=== PATIENT | female | born 1990 | race Caucasian/White ===

== ENCOUNTER 2017-12-09 03:14 | Emergency (ER) | payer SELFPAY ==
--- NOTE | 2017-12-09 04:27 | ER Document Report ---
HPI - HPI Context: denies any long travel, recent surgery, hx of blood clots, chemo or long periods of immobilization. Patient does have a history of anxiety, does not take any medications for anxiety because she "does not like to take pharmaceuticals".. Patient states she was anxious when she came into the ER originally, but states her anxiety has decreased throughout the course of her stay in the emergency room Patient does have an IUD that she has had in place for the last 9 years. Denies any n/t in leg. no otc medications tried. denies any trauma to leg. Denies fevers, chills, chest pain,palpitations, shortness of breath, dyspnea, nausea, vomiting, diarrhea, abdominal pain, hematuria, blurred vision, double vision, loss of vision, speech changes, LH, dizziness, syncope, headaches, wheezing, ST, URI, neck pain, weakness, bowel or bladder dysfunction, saddle anesthesia, numbness or tingling in bilateral upper or lower extremities equally, muscle paralysis, weakness in bilateral upper or lower extremities equally or rash. Denies IV drug use. <CHUY HALL - Last Filed: 12/09/17 08:43> - HPI Patient complains to provider of: Right calf pain Pain Level: 2 Context: Patient is a 27-year-old female who comes emergency department for chief complaint of pain in her right leg and calf. She states that she has noticed pain intermittently since a plane ride last June, she states that over the past few days the pain has specifically got worse in her calf area. She denies other areas of pain, injury, or history of blood clot personally or in her family. She does smoke, she has Mirena IUD. - REPRODUCTIVE LMP: IUD Reproductive: DENIES: : <ALLYSON TERRY - Last Filed: 12/09/17 19:03> Past Medical History - General Information source: Patient - Social History Smoking Status: Current Every Day Smoker Frequency of alcohol use: None Drug Abuse: None Lives with: Alone Family History: Reviewed & Not Pertinent - Immunizations Immunizations up to date: Yes Hx Diphtheria, Pertussis, Tetanus Vaccination: Yes <ALLYSON TERRY - Last Filed: 12/09/17 19:03> Vertical Provider Document - MUSCULOSKELETAL/EXTREMETIES Notes: right calf tenderness and swelling with palpation. negative shana's sign. anterior and posterior drawer test negative.Dtr + 2 in BLE. Full motor and sensory function. no ecchymosis or abrasions noted. distal pulses + 2 bilaterally and equally. Bilateral lower extremity without deformity or asymmetry. No overlying erythema, warmth, discoloration. No lesions or break in the skin integrity. No evidence of compartment syndrome, lymphadenopathy, gangrene. No palpable cords or evidence <CHUY HALL - Last Filed: 12/09/17 08:43> - CONSTITUTIONAL General Appearance: WD/WN, No Apparent Distress, Obese - INFECTION CONTROL TRAVEL OUTSIDE OF THE [place] IN LAST 30 DAYS: No - HEENT HEENT: Atraumatic, Normal ENT Exam, Normocephalic - NECK Neck: Normal Inspection - RESPIRATORY Respiratory: Breath Sounds Normal, No Respiratory Distress. negative: Wheezing O2 Sat by Pulse Oximetry: 97 - CARDIOVASCULAR Cardiovascular: Regular Rate, Regular Rhythm. negative: Tachycardia - GI/ABDOMEN Gastrointestinal: Abdomen Soft, Abdomen Non-Tender - BACK Back: Normal Inspection - MUSCULOSKELETAL/EXTREMETIES Musculoskeletal/Extremeties: Tender - There is general tenderness of the right calf which is very mild, no obvious swelling or pitting edema, however there is a positive Homans sign on the same side. Normal distal neurovascular exam. Normal range of motion of the ankle, knee, hip. Unremarkable lower extremity exam otherwise. - NEURO Level of Consciousness: Awake, Alert, Appropriate Motor/Sensory: No Motor Deficit, No Sensory Deficit - DERM Integumentary: Warm, Dry, No Rash <ALLYSON TERRY - Last Filed: 12/09/17 19:03> Course - Re-evaluation Re-evalutation: Disposition given by BLANCHE Fox at 0715. Patient examined at bedside, comfortable, states she does not feel anxious and is resting. Awaiting ultrasound results. 0845: Ultrasound negative for a DVT. Patient states she was relieved to receive information. Patient states she did have upper thigh swelling from last week which has then migrated down to her calf which was 1 of the main reasons why she came to the ER today. Discussed the symptoms that she is to look out for for PE, advised her to follow-up with her primary care provider. discussed the importance of elevation, taking NSAIDs, compression stocking. She verbalized understanding of this plan of care and agree with plan of care. All questions were answered by this provider. Patient felt that she was ready to go home and patient was discharged home from ER without incident. After performing a Medical Screening Examination, I estimate there is LOW risk for RUPTURED ESOPHAGUS, PNEUMOTHORAX, PULMONARY EMBOLISM, ACUTE CORONARY SYNDROME, OR THORACIC AORTIC DISSECTION, thus I consider the discharge disposition reasonable. I have reevaluated this patient multiple times and no significant life threatening changes are noted. The patient and I have discussed the diagnosis and risks, and we agree with discharging home with close follow-up. We also discussed returning to the Emergency Department immediately if new or worsening symptoms occur. We have discussed the symptoms which are most concerning (e.g., bloody sputum, worsening pain or shortness of breath) that necessitate immediate return. - Vital Signs Vital signs: Temp Pulse Resp BP Pulse Ox 97.9 F 85 18 148/87 H 97 12/09/17 05:11 12/09/17 05:11 12/09/17 05:11 12/09/17 05:11 12/09/17 06:20 <CHUY HALL - Last Filed: 12/09/17 08:43> - Re-evaluation Re-evalutation: Patient smokes, has right calf pain, positive Homans sign. No erythema, severe tenderness, signs of infection, or edema. Discussed with patient, offered to give her a prescription to have a Doppler ultrasound performed of the right lower extremity outpatient, however she requests to wait until the Doppler tech is available because she does not believe she will be able to get this performed outpatient in any reasonable timeframe. Doppler ultrasound ordered, patient awaiting this to be performed. - Vital Signs Vital signs: Temp Pulse Resp BP Pulse Ox 98.8 F 112 H 18 184/108 H 97 12/09/17 03:21 12/09/17 03:21 12/09/17 03:21 12/09/17 03:21 12/09/17 03:21 <ALLYSON TERRY - Last Filed: 12/09/17 19:03> Discharge <CHUY HALL - Last Filed: 12/09/17 08:43> <ALLYSON TERRY - Last Filed: 12/09/17 19:03> - Discharge Clinical Impression: Right calf pain, Thrombophlebitis Condition: Good Disposition: HOME, SELF-CARE Additional Instructions: Sprain Your injury is a sprain. A sprain results from stretching or tearing of the ligaments, usually from a twisting injury. The ligaments will require time and protection in order to heal properly. Many sprains are quite disabling and should be taken seriously. The usual initial treatment of sprains is cold packs, elevation, and rest of the injured area. Your physician has assessed the seriousness of your ligament injury, and has outlined a treatment plan. Understand that this treatment may change, depending on how you progress. If a re-examination was recommended, it is important that you follow up as instructed. Call the doctor any time if there is severe pain, numbness, or loss of function in the injured area. Please follow up with the Orthopedics [facility] [address] [place] [id number] Follow-up with orthopedic as needed, follow-up with primary care as needed. Warm compress, elevation, compression stockings or Howie around calf. Take NSAIDs with food as directed. Return to the ER if symptoms become worse. Return immediately for any new or worsening symptoms. Follow up with primary care provider, call tomorrow to make followup appointment. Prescriptions: Ibuprofen 800 mg PO QIDP PRN #20 tablet PRN Reason: Forms: Smoking Cessation Education Referrals: SHELIA GUTIERREZ MD [ACTIVE STAFF] - Follow up as needed AMIE DUDLEY MD [ACTIVE STAFF] - Follow up as needed
--- NOTE | 2017-12-09 08:37 | RADIOLOGY REPORT (SQ) ---
EXAM DESCRIPTION: VENOUS UNILATERAL LOWER COMPLETED DATE/TIME: 12/09/2017 8:29 am REASON FOR STUDY: right leg/calf pain COMPARISON: None. TECHNIQUE: Dynamic and static swanson scale and color images acquired of the right leg venous system. S elected spectral images acquired with additional compression and augmentation maneuvers. The contrala teral common femoral vein and saphenofemoral junction were also imaged. Images stored on PACS. LIMITATIONS: None. FINDINGS: COMMON FEMORAL: Normal phasicity, compression and augmentation. No visualized echogenic ma terial on swanson scale. No defects on color images. FEMORAL: Normal compression and augmentation. No visualized echogenic material on swanson scale. No defe cts on color images. POPLITEAL: Normal compression, augmentation. No visualized echogenic material on swanson scale. No defec ts on color images. CALF VESSELS: Normal compression, augmentation. No visualized echogenic material on swanson scale. No de fects on color images. GSV and SSV: Normal compression, augmentation. No visualized echogenic material on swanson scale. No def ects on color images. ANY DEEP VENOUS INSUFFICIENCY: Not evaluated. ANY EVIDENCE OF POPLITEAL CYST: No. OTHER: No other significant finding. CONTRALATERAL COMMON FEMORAL VEIN AND SAPHENOFEMORAL JUNCTION: Normal phasicity, compression and augmentation. No visualized echogenic material on swanson scale. No de fects on color images. IMPRESSION: NO EVIDENCE DVT OR SVT IN THE RIGHT LEG. TECHNICAL DOCUMENTATION: JOB ID: [id number] [employer]- All Rights Reserved
[2017-12-09 09:18] VITALS: BP 156/104
== END 2017-12-09 09:18 | disposition home or self-care (01) ==
LOC: ER 03:14
DX: I80.9 Phlebitis and thrombophlebitis of unspecified site (principal); F41.9 Anxiety disorder, unspecified; M79.604 Pain in right leg; Z79.899 Other long term (current) drug therapy; F17.200 Nicotine dependence, unspecified, uncomplicated
CPT/HCPCS: 93971; 99284